=== PATIENT | male | born 1940 | race Asian ===

== ENCOUNTER 2022-03-13 09:38 | Outpatient (CLI) | payer MEDICARE, OTHER ==
--- NOTE | 2022-03-13 17:17 | Ultrasound Report ---
PROCEDURE: Aorta Screening INDICATIONS: FORMER SMOKER TECHNIQUE: Real time scanning was performed of the aorta and iliac arteries, with image documentatio n. COMPARISON: CT abdomen, 09/11/2006 FINDINGS: Aorta: Proximal aortic diameter measures 2.2 x 2.2 cm. Mid-aorta measures 1.9 x 1.8 cm. Distal aor tic diameter is 1.7 x 1.7 cm. Iliac arteries: Right common iliac artery measures 1.3 cm. Left common iliac artery measures 1.4 cm . IMPRESSION: 1. No evidence for abdominal aortic aneurysm. Reviewed by: Aditya Jorge MD on 03/13/2022 5:15 PM PST Approved by: Aditya Jorge MD on 03/13/2022 5:15 PM PST Station ID: [id number]
== END 2022-03-13 09:39 | disposition home or self-care (01) ==
LOC: DI 09:38
PROVIDERS: ATTEND Student in an Organized Health Care Education/Training Program
DX: Z13.6 Encounter for screening for cardiovascular disorders (principal); Z87.891 Personal history of nicotine dependence

== ENCOUNTER 2023-01-04 14:53 | Outpatient (CLI) | payer MEDICARE, OTHER | END 2023-01-04 23:59 | disposition critical access hospital (66) | LOC: EMS 14:53 | DX: R53.1 Weakness (principal); R50.9 Fever, unspecified; R00.0 Tachycardia, unspecified; E11.65 Type 2 diabetes mellitus with hyperglycemia; R06.2 Wheezing; I10 Essential (primary) hypertension; R06.82 Tachypnea, not elsewhere classified | CPT/HCPCS: A0425; A0427 ==

== ENCOUNTER 2023-01-04 15:19 | Emergency (ER) | payer MEDICARE, OTHER ==
[2023-01-04] MEDS ORDERED: IPRATROPIUM 0.2 MG/ML NEB INH STA (15:28)
--- NOTE | 2023-01-04 15:28 | ED Physician Documentation ---
History of Present Illness - Stated complaint Stated Complaint: FEVER - Additonal information Additional information: 82-year-old male is brought to the emergency department for evaluation of fever, weakness and fatigue. Past medical history includes insulin-dependent diabetes, hypertension, hyperlipidemia, gout. Per EMS family found the patient on the ground next to the bed. Patient reports that he came out of bed because he was too hot. EMS reported a fever of 101.3 on scene. EKG showed sinus tachycardia 120. Blood pressure 165/85. He is mildly tachypneic with respiratory rate of 22. Blood glucose was 320. Patient states he has not taken his insulin for several days due to generalized fatigue. EMS reports multiple sick contacts over the last several days at home. Patient at baseline has some confusion and is typically oriented to place and person though not time. This is not new. Patient states that he has had a cough for several days. Denies chest pain or dyspnea. meds: allopurinol, atorvastatin, losartin, 81 asa, novolog 50u qd, lantus 44u qd Review of Systems Constitutional: reports: Fever Cardiac: denies: Chest pain / pressure, Palpitations Respiratory: reports: Cough. denies: Dyspnea GI: reports: Reviewed and negative : reports: Reviewed and negative Skin: reports: Reviewed and negative Musculoskeletal: reports: Reviewed and negative PD PAST MEDICAL HISTORY - Past Medical History Cardiovascular: Hypertension, High cholesterol Respiratory: COPD Endocrine/Autoimmune: Type 1 diabetes GI: None : None HEENT: None Psych: None Musculoskeletal: None Derm: None - Present Medications Home Medications: Ambulatory Orders Medication Instructions Recorded Confirmed Aspirin [Aspir 81] 81 mg PO DAILY 06/21/13 01/04/23 Atorvastatin Calcium [Lipitor] 20 mg PO DAILY 06/21/13 01/04/23 Insulin Glargine,Hum.rec.anlog 44 unit SUBQ QPM 07/13/13 01/04/23 [Lantus] Insulin Aspart [NovoLOG] 50 unit SUBQ TIDWM 01/04/23 01/04/23 Montelukast [Singulair] 10 mg PO DAILY 01/04/23 01/04/23 allopurinoL [Allopurinol] 300 mg PO DAILY 01/04/23 01/04/23 - Allergies Allergies/Adverse Reactions: Allergies Allergy/AdvReac Type Severity Reaction Status Date / Time No Known Drug Allergies Allergy Verified 01/04/23 15:32 PD ED PE NORMAL - General General: Alert and oriented X 3, No acute distress - HEENT HEENT: Atraumatic - Neck Neck: Supple, no meningeal sign, No JVD - Cardiac Cardiac: RRR, No murmur - Respiratory Respiratory: No: Clear bilaterally (Faint scattered expiratory wheeze. 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 Eye Opening: Spontaneous Motor: Obeys Commands Verbal: Oriented GCS Score: 15 Results - Vitals Vitals: Vital Signs - 24 hr 01/04/23 01/04/23 01/04/23 15:27 15:31 15:48 Temperature 37.4 C Heart Rate 124 H 124 H 128 H Respiratory 24 24 20 Rate Blood Pressure 167/95 H 167/95 H O2 Saturation 93 93 01/04/23 01/04/23 01/04/23 16:07 16:22 16:52 Temperature 39.3 C H Heart Rate 120 H 130 H 128 H Respiratory 20 20 22 Rate Blood Pressure 170/90 H 160/100 H 160/122 H O2 Saturation 94 97 95 01/04/23 01/04/23 01/04/23 17:37 17:52 18:40 Temperature 37.4 C 37.4 C 37.4 C Heart Rate 118 H 115 H 108 H Respiratory 25 H 22 22 Rate Blood Pressure 151/82 H 172/82 H 160/80 H O2 Saturation 93 92 94 Oxygen O2 Source Room air - EKG (time done) 1541 EKG releavant findings:: EKG personally interpreted by author of this note. Relevant findings are: Rate: Rate (enter#) (129) Rhythm: Sinus tachycardia [place]: Normal Intervals: Normal CT QRS: Normal Ischemia: Non specific changes Compare to prior EKG: Old EKG unavailable Computer interpretation: Agree with computer - Labs Labs: Laboratory Tests 01/04/23 01/04/23 01/04/23 15:26 15:34 15:34 WBC 6.3 RBC 5.07 Hgb 15.3 Hct 45.9 MCV 90.5 MCH 30.2 MCHC 33.3 RDW 13.2 Plt Count 145 MPV 10.8 Neut # (Auto) 4.8 Lymph # (Auto) 0.6 L [place] # (Auto) 0.9 Eos # (Auto) 0.0 Baso # (Auto) 0.1 Absolute Nucleated RBC 0.00 Nucleated RBC % 0.0 Sodium 136 Potassium 3.7 Chloride 99 L Carbon Dioxide 27 Anion Gap 10.0 BUN 15 Creatinine 1.3 Estimated GFR (MDRD) 53 L Glucose 304 H POC Whole Bld Glucose Lactic Acid Calcium 9.0 Total Bilirubin 1.0 AST 29 ALT 19 Alkaline Phosphatase 66 Total Protein 7.6 Albumin 4.3 Globulin 3.3 Albumin/Globulin Ratio 1.3 Urine Color Urine Clarity Urine pH Ur Specific [place] Urine Protein Urine Glucose (UA) Urine Ketones Urine Occult Blood Urine Nitrite Urine Bilirubin Urine Urobilinogen Ur Leukocyte Esterase Urine RBC Urine WBC Ur Squamous Epith Cells Urine Bacteria Urine Mucus Urine Yeast Urine Culture Comments Nasal Adenovirus (PCR) NOT DETECTED Nasal B. parapertussis DNA (PCR) NOT DETECTED Nasal Coronavir 229E PCR NOT DETECTED Nasal Coronavir HKU1 PCR NOT DETECTED Nasal Coronavir NL63 PCR NOT DETECTED Nasal Coronavir OC43 PCR NOT DETECTED Nasal Enterovir/Rhinovir PCR NOT DETECTED Nasal Influenza B PCR NOT DETECTED Nasal Influenza A PCR NOT DETECTED Nasal Parainfluen 1 PCR NOT DETECTED Nasal Parainfluen 2 PCR NOT DETECTED Nasal Parainfluen 3 PCR NOT DETECTED Nasal Parainfluen 4 PCR NOT DETECTED Nasal RSV (PCR) NOT DETECTED Nasal B.pertussis DNA PCR NOT DETECTED Nasal C.pneumoniae (PCR) NOT DETECTED Chris Human Metapneumo PCR NOT DETECTED Nasal M.pneumoniae (PCR) NOT DETECTED Nasal SARS-CoV-2 (PCR) DETECTED A 01/04/23 01/04/23 01/04/23 15:34 16:13 17:25 WBC RBC Hgb Hct MCV MCH MCHC RDW Plt Count MPV Neut # (Auto) Lymph # (Auto) [place] # (Auto) Eos # (Auto) Baso # (Auto) Absolute Nucleated RBC Nucleated RBC % Sodium Potassium Chloride Carbon Dioxide Anion Gap BUN Creatinine Estimated GFR (MDRD) Glucose POC Whole Bld Glucose 182 H Lactic Acid 3.5 H* Calcium Total Bilirubin AST ALT Alkaline Phosphatase Total Protein Albumin Globulin Albumin/Globulin Ratio Urine Color BROWN Urine Clarity SL. CLOUDY Urine pH 6.0 Ur Specific [place] 1.025 Urine Protein >=300 H Urine Glucose (UA) >=1000 H Urine Ketones TRACE Urine Occult Blood LARGE H Urine Nitrite NEGATIVE Urine Bilirubin NEGATIVE Urine Urobilinogen 0.2 (NORMAL) Ur Leukocyte Esterase NEGATIVE Urine RBC 11-25 H Urine WBC 0-3 Ur Squamous Epith Cells FEW Squamous Urine Bacteria Few Urine Mucus Few Strands Urine Yeast PRESENT Urine Culture Comments NOT INDICATED Nasal Adenovirus (PCR) Nasal B. parapertussis DNA (PCR) Nasal Coronavir 229E PCR Nasal Coronavir HKU1 PCR Nasal Coronavir NL63 PCR Nasal Coronavir OC43 PCR Nasal Enterovir/Rhinovir PCR Nasal Influenza B PCR Nasal Influenza A PCR Nasal Parainfluen 1 PCR Nasal Parainfluen 2 PCR Nasal Parainfluen 3 PCR Nasal Parainfluen 4 PCR Nasal RSV (PCR) Nasal B.pertussis DNA PCR Nasal C.pneumoniae (PCR) Chris Human Metapneumo PCR Nasal M.pneumoniae (PCR) Nasal SARS-CoV-2 (PCR) 01/04/23 18:39 WBC RBC Hgb Hct MCV MCH MCHC RDW Plt Count MPV Neut # (Auto) Lymph # (Auto) [place] # (Auto) Eos # (Auto) Baso # (Auto) Absolute Nucleated RBC Nucleated RBC % Sodium Potassium Chloride Carbon Dioxide Anion Gap BUN Creatinine Estimated GFR (MDRD) Glucose POC Whole Bld Glucose Lactic Acid 2.7 H Calcium Total Bilirubin AST ALT Alkaline Phosphatase Total Protein Albumin Globulin Albumin/Globulin Ratio Urine Color Urine Clarity Urine pH Ur Specific [place] Urine Protein Urine Glucose (UA) Urine Ketones Urine Occult Blood Urine Nitrite Urine Bilirubin Urine Urobilinogen Ur Leukocyte Esterase Urine RBC Urine WBC Ur Squamous Epith Cells Urine Bacteria Urine Mucus Urine Yeast Urine Culture Comments Nasal Adenovirus (PCR) Nasal B. parapertussis DNA (PCR) Nasal Coronavir 229E PCR Nasal Coronavir HKU1 PCR Nasal Coronavir NL63 PCR Nasal Coronavir OC43 PCR Nasal Enterovir/Rhinovir PCR Nasal Influenza B PCR Nasal Influenza A PCR Nasal Parainfluen 1 PCR Nasal Parainfluen 2 PCR Nasal Parainfluen 3 PCR Nasal Parainfluen 4 PCR Nasal RSV (PCR) Nasal B.pertussis DNA PCR Nasal C.pneumoniae (PCR) Chris Human Metapneumo PCR Nasal M.pneumoniae (PCR) Nasal SARS-CoV-2 (PCR) - Rads (name of study) cxr Relevant Findings:: Final report received (Low lung volumes without acute abnormality. Stable elevation of the right hemidiaphragm is seen.) PD Medical Decision Making - ED course Complexity details: reviewed results, re-evaluated patient, considered differential, d/w patient, d/w family ED course: 82-year-old male who has a past medical history most significant for hypertension and diabetes is brought to the emergency department for evaluation of several days increasing weakness, fatigue fever and cough. Multiple family members at home are sick with similar. Here in the emergency department we did obtain labs under a sepsis protocol. Patient presented with a temperature 39.3 elevated heart rate of 130 but normotensive. Cardiopulmonary exam revealed some faint wheeze but no crackles or rhonchi. A chest x-ray showed no findings of pneumonia. His oxygen levels were normal. We did obtain CBC, electrolytes lactic acid as well as a PCR panel. Other laboratory findings most significant findings was that of a mildly elevated lactic acid of 3.5. CO2 was normal and I am not suspicious for acidosis. Urinalysis had some faint hematuria but no markers of infection. Blood cultures are pending. Here in the emergency department the patient received 2 L of IV fluids and on repeat evaluation the lactic acid was downtrending to 2.7. The patient's heart rate also markedly improved following control of the fever and at the time of my last evaluation in the room was noted to be 102. Patient's labs today are not consistent with sepsis nor is the patient in septic shock. The cause of fever and tachycardia is most likely COVID-19 infection Clinically the patient does not require hospitalization for treatment of his COVID-19 infection. He is not hypoxic and the chest x-ray showed no acute findings. We will treat the COVID-19 infection with Paxlovid. First dose administered here in the ER. He is advised to abstain from his atorvastatin while on the Paxlovid. I discussed with his son at the bedside the pertinent laboratory findings as well as routine management of the infection at home. The usual emergent return precautions were discussed for worsening symptoms. Departure - Departure Disposition: 01 Home, Self Care Clinical Impression: COVID-19 virus infection, Elevated lactic acid level Condition: Stable Record reviewed to determine appropriate education?: Yes Comments: Latrell was seen today in the emergency department because for the last several days he has been weak having cough as well as having fever. Multiple family members at home are sick. Lab testing today confirms that he is COVID-19 positive. Because of his history of hypertension and diabetes he is at higher risk for complications due to COVID-19. As such I recommend that he begin taking the Paxlovid twice daily for the next 5 days. While taking this medication he should not take his atorvastatin. The rest of his labs today in the emergency department were essentially normal with the exception of a mildly elevated lactic acid. This was improving with some IV fluids. At home over the next several days is important that he stay well-hydrated. He can continue to take his other usual medications with the exception of the atorvastatin. Chest x-ray today did not show any findings of pneumonia and his oxygen levels were normal. And there was no indication for hospitalization. If at any point you find that he is having worsening symptoms, is having labored breathing, is e xcessively dehydrated lethargic or weak then he should return immediately to the ER for repeat evaluation. He should remain in isolation for about 1 week from the onset of symptoms.
[2023-01-04 15:42] LABS: BASOPHILS # (AUTO) 0.1 10^3/uL (0.0-0.1); BASOPHILS % (AUTO) 0.8 %; EOSINOPHILS % (AUTO) 0.5 %; HCT - HEMATOCRIT 45.9 % (42.0-52.0); HGB - HEMOGLOBIN 15.3 g/dL (14.0-18.0); LYMPHOCYTES # (AUTO) 0.6 10^3/uL (1.5-3.5); LYMPHOCYTES % (AUTO) 9.1 %; MEAN CORPUSCULAR HEMOGLOBIN 30.2 pg (27.0-31.0); MEAN CORPUSCULAR HGB CONC 33.3 g/dL (32.0-36.0); MEAN CORPUSCULAR VOLUME 90.5 fL (80.0-94.0); MEAN PLATELET VOLUME 10.8 fL (7.4-11.4); MONOCYTES # (AUTO) 0.9 10^3/uL (0.0-1.0); MONOCYTES % (AUTO) 13.4 %; NEUTROPHILS # (AUTO) 4.8 10^3/uL (1.5-6.6); PLT - PLATELET COUNT 145 10^3/uL (130-450); RED BLOOD COUNT 5.07 10^6/uL (4.70-6.10); RED CELL DISTRIBUTION WIDTH 13.2 % (12.0-15.0); WHITE BLOOD COUNT 6.3 x10^3/uL (4.8-10.8)
[2023-01-04] MEDS: LEVALBUTEROL 1.25 MG/3 ML NEB INH STA (15:47)
[2023-01-04 15:57] LABS: ALBUMIN 4.3 g/dL (3.2-5.5); ALBUMIN/GLOBULIN RATIO 1.3 (1.0-2.2); CREATININE 1.3 mg/dL (0.6-1.3); POTASSIUM 3.7 mmol/L (3.5-4.5); TOTAL PROTEIN 7.6 g/dL (6.4-8.9)
[2023-01-04 16:09] LABS: LACTIC ACID, VENOUS 3.5 mmol/L (0.5-2.2)
[2023-01-04] MEDS ORDERED: SODIUM CHLORIDE 0.9% 1,000 ML IV STA (16:10)
[2023-01-04 16:19] LABS: BILIRUBIN,URINE NEGATIVE (NEGATIVE); GLUCOSE, URINE (UA) >=1000 mg/dL (NEGATIVE); KETONES,URINE (UA) TRACE mg/dL (NEGATIVE); LEUKOCYTE ESTERASE, URINE NEGATIVE (NEGATIVE); NITRITE,URINE NEGATIVE (NEGATIVE); OCCULT BLOOD,URINE LARGE (NEGATIVE); PROTEIN,URINE >=300 mg/dL (NEGATIVE); UROBILINOGEN,URINE 0.2 (NORMAL) E.U./dL (NORMAL)
--- NOTE | 2023-01-04 16:20 | XRAY Report ---
PROCEDURE: Chest 1 View X-Ray INDICATIONS: Sepsis TECHNIQUE: One view of the chest was acquired. COMPARISON: 05/15/2014. Correlation is also made with chest CT, 06/02/2014 FINDINGS: Surgical changes and devices: None. Lungs and pleura: An incomplete inspiratory result is noted, with low lung volumes and crowding of t he vascular markings. No focal infiltrates are seen. No large pneumothorax or large pleural effusion can be seen. There is elevation of the right hemidiaphragm. Mediastinum: Mediastinal contours appear normal. Heart size is normal. Calcification is seen of th e aortic arch. Bones and chest wall: No suspicious bony lesions. Age-appropriate degenerative changes are seen. Overlying soft tissues appear unremarkable. IMPRESSION: Low lung volumes, without an acute abnormality seen. Stable elevation of the right hemidiaphragm can be seen. Reviewed by: Wilton Thayer MD on 01/04/2023 3:19 PM [facility] Approved by: Wilton Thayer MD on 01/04/2023 3:19 PM [facility] Station ID: [id number]
[2023-01-04] MEDS ORDERED: INSULIN REGULAR HUMAN 300 UNIT/3 ML VIAL IVP STA (16:24)
[2023-01-04 16:27] LABS: BACTERIA,URINE Few /HPF (None Seen); CLARITY,URINE SL. CLOUDY (CLEAR); MUCUS,URINE Few Strands; SQUAMOUS EPITHELIAL CELL,UR FEW Squamous (<= Few); WBC,URINE 0-3 /HPF (0-3); YEAST,URINE PRESENT
[2023-01-04] MEDS ORDERED: ACETAMINOPHEN 325 MG TABLET PO STA (16:29)
[2023-01-04] MEDS ORDERED: IBUPROFEN 600 MG TABLET PO STA (16:36)
[2023-01-04 16:45] LABS: B. PARAPERTUSSIS- RESP PCR PAN NOT DETECTED; B. PERTUSSIS- RESP PCR PANEL NOT DETECTED; C. PNEUMONIAE- RESP PCR PANEL NOT DETECTED; CORONAVIRUS 229E-RESP PCR NOT DETECTED; CORONAVIRUS HKU1-RESP PCR NOT DETECTED; CORONAVIRUS NL63-RESP PCR NOT DETECTED; CORONAVIRUS OC43-RESP PCR NOT DETECTED; HUMAN METAPNEUMOVIRUS NOT DETECTED; INFLUENZA A- RESP PCR PANEL NOT DETECTED; INFLUENZA B - RESP PCR PANEL NOT DETECTED; M. PNEUMONIAE- RESP PCR PANEL NOT DETECTED; PARAINFLUENZA VIRUS 1 NOT DETECTED; PARAINFLUENZA VIRUS 2 NOT DETECTED; PARAINFLUENZA VIRUS 3 NOT DETECTED; PARAINFLUENZA VIRUS 4 NOT DETECTED; RHINOVIRUS/ENTEROVIRUS NOT DETECTED; RSV- RESP PCR PANEL NOT DETECTED
[2023-01-04 16:47] LABS: SARS-CoV-2 -RESP PCR PANEL DETECTED
[2023-01-04] MEDS ORDERED: NIRMATRELVIR/RITONAVIR PREPACK PO STA (16:47)
[2023-01-04 18:57] LABS: LACTIC ACID, VENOUS 2.7 mmol/L (0.5-2.2)
[2023-01-04 19:34] VITALS: BP 126/82; O2SAT 95
== END 2023-01-04 19:30 | disposition home or self-care (01) ==
LOC: ED 15:19
DX: U07.1 COVID-19 (principal); R74.02 Elevation of levels of lactic acid dehydrogenase [LDH]; I10 Essential (primary) hypertension; E78.00 Pure hypercholesterolemia, unspecified; J44.9 Chronic obstructive pulmonary disease, unspecified; E10.9 Type 1 diabetes mellitus without complications; Z79.82 Long term (current) use of aspirin; Z79.899 Other long term (current) drug therapy
CPT/HCPCS: 36415; 71045; 80053; 81001; 83605; 85025; 87040; 87633; 93005; 94640; 94664; 99284; A9270; J1815; J3490; 87086

== ENCOUNTER 2023-03-11 09:49 | Outpatient (CLI) | payer MEDICARE, OTHER | END 2023-03-11 09:50 | disposition critical access hospital (66) | LOC: EMS 09:49 | DX: R53.1 Weakness (principal); R05.9 Cough, unspecified | CPT/HCPCS: A0425; A0427 ==

== ENCOUNTER 2023-03-11 10:09 | Inpatient (IN) | payer MEDICARE, OTHER ==
[2023-03-11] MEDS ORDERED: SODIUM CHLORIDE 0.9% 1,000 ML IV STA (10:28)
[2023-03-11 11:04] LABS: BASOPHILS % (AUTO) 0.5 %; EOSINOPHILS # (AUTO) 0.2 10^3/uL (0.0-0.7); EOSINOPHILS % (AUTO) 2.1 %; HCT - HEMATOCRIT 44.4 % (42.0-52.0); HGB - HEMOGLOBIN 14.5 g/dL (14.0-18.0); LYMPHOCYTES # (AUTO) 0.4 10^3/uL (1.5-3.5); LYMPHOCYTES % (AUTO) 5.2 %; MEAN CORPUSCULAR HEMOGLOBIN 30.1 pg (27.0-31.0); MEAN CORPUSCULAR HGB CONC 32.7 g/dL (32.0-36.0); MEAN CORPUSCULAR VOLUME 92.1 fL (80.0-94.0); MEAN PLATELET VOLUME 10.5 fL (7.4-11.4); MONOCYTES # (AUTO) 0.6 10^3/uL (0.0-1.0); MONOCYTES % (AUTO) 7.8 %; NEUTROPHILS # (AUTO) 6.5 10^3/uL (1.5-6.6); PLT - PLATELET COUNT 173 10^3/uL (130-450); RED BLOOD COUNT 4.82 10^6/uL (4.70-6.10); RED CELL DISTRIBUTION WIDTH 13.3 % (12.0-15.0); WHITE BLOOD COUNT 7.7 x10^3/uL (4.8-10.8)
[2023-03-11 11:18] LABS: ALBUMIN/GLOBULIN RATIO 1.3 (1.0-2.2); BILIRUBIN,TOTAL 1.1 mg/dL (0.2-1.0); CALCIUM 8.9 mg/dL (8.5-10.3); CREATININE 1.4 mg/dL (0.6-1.3); POTASSIUM 3.7 mmol/L (3.5-4.5); TOTAL PROTEIN 7.2 g/dL (6.4-8.9)
--- NOTE | 2023-03-11 11:50 | XRAY Report ---
PROCEDURE: Chest 1V INDICATIONS: cough/tachycardia TECHNIQUE: One view of the chest was acquired. COMPARISON: None. FINDINGS: Surgical changes and devices: None. Lungs and pleura: No pleural effusions or pneumothorax. Lungs are clear. There is elevation of th e right hemidiaphragm, as before. Mediastinum: Mediastinal contours appear normal. Heart size is normal. Bones and chest wall: No suspicious bony lesions. Overlying soft tissues appear unremarkable. IMPRESSION: No acute cardiopulmonary process. Unchanged elevation of the right hemidiaphragm. Reviewed by: Marlys Dennis MD on 03/11/2023 11:49 AM [facility] Approved by: Marlys Dennis MD on 03/11/2023 11:49 AM [facility] Station ID: [id number]
[2023-03-11 12:02] LABS: CORONAVIRUS 229E-RESP PCR NOT DETECTED; CORONAVIRUS HKU1-RESP PCR NOT DETECTED; CORONAVIRUS NL63-RESP PCR NOT DETECTED; CORONAVIRUS OC43-RESP PCR NOT DETECTED; HUMAN METAPNEUMOVIRUS NOT DETECTED; INFLUENZA A H1 2009- RESP PCR DETECTED; RHINOVIRUS/ENTEROVIRUS NOT DETECTED; SARS-CoV-2 -RESP PCR PANEL NOT DETECTED
[2023-03-11 12:03] LABS: B. PARAPERTUSSIS- RESP PCR PAN NOT DETECTED; B. PERTUSSIS- RESP PCR PANEL NOT DETECTED; C. PNEUMONIAE- RESP PCR PANEL NOT DETECTED; INFLUENZA B - RESP PCR PANEL NOT DETECTED; M. PNEUMONIAE- RESP PCR PANEL NOT DETECTED; PARAINFLUENZA VIRUS 1 NOT DETECTED; PARAINFLUENZA VIRUS 2 NOT DETECTED; PARAINFLUENZA VIRUS 3 NOT DETECTED; PARAINFLUENZA VIRUS 4 NOT DETECTED; RSV- RESP PCR PANEL NOT DETECTED
--- NOTE | 2023-03-11 12:15 | ED Physician Documentation ---
History of Present Illness - Stated complaint Stated Complaint: WEAKNESS/GLF - Chief complaint Chief Complaint: General - History obtained from History obtained from: Patient, EMS - Additonal information Additional information: Patient is an 83-year-old male With a history of insulin-dependent diabetes, hypertension, hyperlipidemia, presenting for evaluation of generalized weakness as well as feeling cough, congestion for the past several days. Patient states that he has been ill for approximately 3 days with cough, congestion, runny nose. No reported fevers. At this morning he was sitting up in the bathroom when he felt weak and lowered himself down to the ground. He denies hitting his head. There is no LOC. He denies pain anywhere. Patient is unsure of known sick contacts. From prior notes it appears that based patient has some baseline confusion and typically oriented to person and place although not time. Review of Systems Constitutional: denies: Fever Nose: reports: Congestion Throat: reports: Sore throat Cardiac: denies: Chest pain / pressure Respiratory: reports: Cough. denies: Dyspnea GI: denies: Abdominal Pain, Vomiting : denies: Dysuria Neurologic: denies: Syncope PD PAST MEDICAL HISTORY - Past Medical History Cardiovascular: Hypertension, High cholesterol Respiratory: COPD Endocrine/Autoimmune: Type 1 diabetes GI: None : None HEENT: None Psych: None Musculoskeletal: None Derm: None - Present Medications Home Medications: Ambulatory Orders Medication Instructions Recorded Confirmed Aspirin [Aspir 81] 81 mg PO DAILY 06/21/13 03/11/23 Atorvastatin Calcium [Lipitor] 20 mg PO DAILY 06/21/13 03/11/23 Insulin Glargine,Hum.rec.anlog 100 unit SUBQ QPM 07/13/13 03/11/23 [Lantus] Insulin Aspart [NovoLOG] 44 unit SUBQ TIDWM 01/04/23 03/11/23 Montelukast [Singulair] 10 mg PO DAILY 01/04/23 03/11/23 allopurinoL [Allopurinol] 300 mg PO DAILY 01/04/23 03/11/23 Fluticasone [Flonase] 1 inh INH DAILY 03/11/23 03/11/23 Losartan [Cozaar] 1 tab PO DAILY 03/11/23 03/11/23 - Allergies Allergies/Adverse Reactions: Allergies Allergy/AdvReac Type Severity Reaction Status Date / Time No Known Drug Allergies Allergy Verified 01/04/23 15:32 - Social History Does the pt smoke?: No Smoking Status: Never smoker Does the pt drink ETOH?: No Does the pt have substance abuse?: No PD ED PE NORMAL - General General: No acute distress, Well developed/nourished. No: Alert and oriented X 3 (Alert and oriented to person and place but confused on year) - HEENT HEENT: Atraumatic - Neck Neck: Supple, no meningeal sign. No: No bony TTP - Cardiac Cardiac: Strong equal pulses, Other (Tachycardic, regular rhythm) - Respiratory Respiratory: No respiratory distress, Clear bilaterally - Abdomen Abdomen: Normal bowel sounds, Soft, Non tender, Non distended - Derm Derm: Warm and dry - Extremities Extremities: No calf tenderness / cord - Neuro Neuro: No motor deficit, Normal speech. No: Alert and oriented X 3 (Alert and oriented to person and place) Results - Vitals Vitals: Vital Signs - 24 hr 03/11/23 03/11/23 03/11/23 10:13 11:35 11:36 Temperature 98.1 C H Heart Rate 129 H Respiratory 26 H Rate Blood Pressure 161/92 H O2 Saturation 92 88 L 94 If not protocol 2 : Oxygen Flow, liters/minute 03/11/23 13:00 Temperature Heart Rate 124 H Respiratory 19 Rate Blood Pressure 154/130 H O2 Saturation 95 If not protocol 2 : Oxygen Flow, liters/minute Oxygen O2 Source Nasal cannula Oxygen Flow Rate 2 - EKG (time done) 1058 EKG releavant findings:: EKG personally interpreted by author of this note. Relevant findings are: Rate 119, sinus tachycardia, no STEMI - Labs Labs: Laboratory Tests 03/11/23 03/11/23 03/11/23 10:35 10:48 10:48 WBC 7.7 RBC 4.82 Hgb 14.5 Hct 44.4 MCV 92.1 MCH 30.1 MCHC 32.7 RDW 13.3 Plt Count 173 MPV 10.5 Neut # (Auto) 6.5 Lymph # (Auto) 0.4 L [place] # (Auto) 0.6 Eos # (Auto) 0.2 Baso # (Auto) 0.0 Absolute Nucleated RBC 0.00 Nucleated RBC % 0.0 Sodium 140 Potassium 3.7 Chloride 103 Carbon Dioxide 29 Anion Gap 8.0 BUN 17 Creatinine 1.4 H Estimated GFR (MDRD) 48 L Glucose 193 H Lactic Acid Calcium 8.9 Total Bilirubin 1.1 H AST 24 ALT 18 Alkaline Phosphatase 65 Troponin I High Sens Total Protein 7.2 Albumin 4.0 Globulin 3.2 Albumin/Globulin Ratio 1.3 Lipase 21 Nasal Adenovirus (PCR) NOT DETECTED Nasal B. parapertussis DNA (PCR) NOT DETECTED Nasal Coronavir 229E PCR NOT DETECTED Nasal Coronavir HKU1 PCR NOT DETECTED Nasal Coronavir NL63 PCR NOT DETECTED Nasal Coronavir OC43 PCR NOT DETECTED Nasal Enterovir/Rhinovir PCR NOT DETECTED Nasal Influ A H1 2009 PCR DETECTED A Nasal Influenza B PCR NOT DETECTED Nasal Parainfluen 1 PCR NOT DETECTED Nasal Parainfluen 2 PCR NOT DETECTED Nasal Parainfluen 3 PCR NOT DETECTED Nasal Parainfluen 4 PCR NOT DETECTED Nasal RSV (PCR) NOT DETECTED Nasal B.pertussis DNA PCR NOT DETECTED Nasal C.pneumoniae (PCR) NOT DETECTED Chris Human Metapneumo PCR NOT DETECTED Nasal M.pneumoniae (PCR) NOT DETECTED Nasal SARS-CoV-2 (PCR) NOT DETECTED 03/11/23 03/11/23 10:48 10:48 WBC RBC Hgb Hct MCV MCH MCHC RDW Plt Count MPV Neut # (Auto) Lymph # (Auto) [place] # (Auto) Eos # (Auto) Baso # (Auto) Absolute Nucleated RBC Nucleated RBC % Sodium Potassium Chloride Carbon Dioxide Anion Gap BUN Creatinine Estimated GFR (MDRD) Glucose Lactic Acid 2.1 Calcium Total Bilirubin AST ALT Alkaline Phosphatase Troponin I High Sens 13.9 Total Protein Albumin Globulin Albumin/Globulin Ratio Lipase Nasal Adenovirus (PCR) Nasal B. parapertussis DNA (PCR) Nasal Coronavir 229E PCR Nasal Coronavir HKU1 PCR Nasal Coronavir NL63 PCR Nasal Coronavir OC43 PCR Nasal Enterovir/Rhinovir PCR Nasal Influ A H1 2009 PCR Nasal Influenza B PCR Nasal Parainfluen 1 PCR Nasal Parainfluen 2 PCR Nasal Parainfluen 3 PCR Nasal Parainfluen 4 PCR Nasal RSV (PCR) Nasal B.pertussis DNA PCR Nasal C.pneumoniae (PCR) Chris Human Metapneumo PCR Nasal M.pneumoniae (PCR) Nasal SARS-CoV-2 (PCR) PD Medical Decision Making - ED course Complexity details: reviewed results, re-evaluated patient, d/w patient, d/w family ED course: Patient is an 83-year-old male presenting for evaluation of generalized weakness in setting of cough and congestion for the past several days. Patient denies hitting his head or having syncope. His neuroexam appears to be at his baseline. No focal deficits. Patient is noted to be hypoxic with room air sats around 88% which improved on nasal cannula. CBC, chemistry, blood cultures and lactic were obtained. Respiratory swab and chest x-ray were also reviewed. Patient is positive for influenza A. Chest x-ray which I reviewed is negative for pneumonia.Creatinine is 1.4 which is similar to previous. Negative high- sensitivity troponin. No signs of ischemia on EKG. Patient is noted to be tachycardic. He did receive IV fluids. As he is requiring oxygen we will admit for further management. 1327 - D/W Admitting hospitalist, Dr. Rosa who will admit the patient for further management. Departure - Departure Disposition: 66 [facility] DC/Xfer Clinical Impression: Influenza A, Hypoxia, Sinus tachycardia Condition: Fair Discharge Date/Time: 03/11/23 15:19
[2023-03-11] MEDS ORDERED: OSELTAMIVIR 75 MG CAPSULE PO STA (13:26)
[2023-03-11] MEDS ORDERED: oxyCODONE 5 MG TABLET PO PRN (13:34)
[2023-03-11] MEDS ORDERED: ONDANSETRON ODT 4 MG TABLET TL PRN (13:34)
[2023-03-11] MEDS ORDERED: ONDANSETRON 4 MG/2 ML VIAL IVP PRN (13:34)
[2023-03-11] MEDS ORDERED: ACETAMINOPHEN 325 MG TABLET PO PRN (13:34)
[2023-03-11] MEDS ORDERED: SODIUM CHLORIDE FLUSH 0.9% 10 ML SYRINGE IVP PRN (13:34)
[2023-03-11] MEDS: SODIUM CHLORIDE 0.9% 1,000 ML IV SCH (13:48)
--- NOTE | 2023-03-11 15:35 | HISTORY & PHYSICAL EXAMINATION ---
Chief Complaint - Chief Complaint Chief Complaint: Patient was found after falling in the bathroom History of Present Illness - Admitted From Admitted From:: Emergency Room - History Obtained From Records Reviewed: from patient's opthalmologist History obtained from: Patient's son Exam Limitations: Patient has dementia - History of Present Illness HPI Comment/Other: Mr. Coronado is an 83 year old male with dementia, COPD, and Type 1 diabetes who presents to the ER via ambulance after falling in the bathroom. He lives with his eenhqvj-fn-cij and nephew, who are his primary care takers. Patient is here with his son, who is acting as his historian. According to the patient's family, Mr. Coronado began coughing, feeling congested, weakm and having trouble breathing a few days ago. This morning, he went to the restroom alone when his [id number]-[id number]-fjd heard a loud thud and found Mr. Coronado on the floor against the door. Patient denies hitting his head and denies any pain. Of note, multiple family members with whom Mr. Coronado lives with are currently sick with flu-like symptoms. Patient has not complained of any fevers, headaches, vision changes, nausea, vomiting, or chills. His appetite is intact and has regular bowel m ovements. While in the ER, patient was started on 2 L of O2 via nasal cannula since his O2 sat was 88% upon arrival. O2 sats have increased, hovering between 92-94%. Initial labs showed a normal WBC and CMP with positive Influenza type A. His son noticed that Mr. Coronado began having rigors, which also occurred during his hospitalization in 12/2022 for COVID-19. History - Past Medical History Cardiovascular: reports: Hypertension, High cholesterol Respiratory: reports: Asthma, COPD Neuro: reports: Dementia Endocrine/Autoimmune: reports: Type 2 diabetes (insulin dependent ) GI: reports: None : reports: None HEENT: reports: None Psych: reports: None Musculoskeletal: reports: None Derm: reports: None MRSA Hx?: No Other Past Medical History: Prostate cancer with resection in 2006 - Past Surgical History HEENT: reports: Cataracts (both removed 2013) Other past surgical history: prostate resection due to prostate cancer - Family & Social History Family History Comment/Other: Mom of unknown cancer in old age. Dad of old age, did have DM. Pat is 1 of 10 kids: all alive with HTN, DM. 2 children are healthy w/o med problems Living arrangement: At home Living Situation: With family Social History Notes: His wacnnjm-uj-cpf moved in with him and serves as his primary kitchen steward/stewardess. His 4 years ago. - Substance History Use: Uses substance without health or social issues: NONE, Tobacco (for ~2 years in his 20's ) Abuse: Recurrent use of substance despite neg consequences: NONE Dependence: Experiences withdrawal or developed tolerances: NONE - POLST Patient has POLST: Yes POLST Status: DNR Meds/Allgy - Home Medications Home Medications: Ambulatory Orders Medication Instructions Recorded Confirmed Aspirin [Aspir 81] 81 mg PO DAILY 06/21/13 03/11/23 Atorvastatin Calcium [Lipitor] 20 mg PO DAILY 06/21/13 03/11/23 Insulin Glargine,Hum.rec.anlog 100 unit SUBQ QPM 07/13/13 03/11/23 [Lantus] Insulin Aspart [NovoLOG] 44 unit SUBQ TIDWM 01/04/23 03/11/23 Montelukast [Singulair] 10 mg PO DAILY 01/04/23 03/11/23 allopurinoL [Allopurinol] 300 mg PO DAILY 01/04/23 03/11/23 Fluticasone [Flonase] 1 inh INH DAILY 03/11/23 03/11/23 Losartan [Cozaar] 1 tab PO DAILY 03/11/23 03/11/23 - Allergies Allergies/Adverse Reactions: Allergies Allergy/AdvReac Type Severity Reaction Status Date / Time No Known Drug Allergies Allergy Verified 01/04/23 15:32 Review of Systems - Constitutional Constitutional: reports: Fatigue, Weakness, Other (rigors that began in the ER (per patient's son)) - Eyes Eyes: reports: Vision loss - Ears, Nose & Throat Ears, Nose & Throat: reports: Nasal obstruction, Nasal congestion, Postnasal drainage. denies: Hearing aids - Cardiovascular Cariovascular: denies: Irregular heart rate, Chest pain - Respiratory Respiratory: reports: Cough, Sputum production, Wheezing - Gastrointestinal Gastrointestinal: denies: Abdominal pain, Abdominal distention, Diarrhea, Nausea, Vomiting - Genitourinary Genitourinary: reports: Incontinence. denies: Dysuria, Frequency, Urgency - Musculoskeletal Musculoskeletal: reports: Gout. denies: Muscle pain, Back pain - Integumentary Integumentary: denies: Rash, Pruritis, Lesions - Neurological Neurological: reports: General weakness, Memory problems, Pre-existing deficit - Psychiatric Psychiatric: denies: Depression, Anxiety, Suicidal - Endocrine Endocrine: denies: Polyuria, Polydypsia, Polyphagia - Hematologic/Lymphatic Hematologic/Lymphatic: denies: Anemia, Bruising, Petechiae - Other Findings Other Findings: Tremors at rest began while patient was waiting in the ER. Patient's son notes that the patient had sudden onset tremors while hospitalized for COVID-19 recently. Prior Level of Functionality: Patient lives with his frukbbz-aj-svz, who acts as his primary caregiver. Patient is able to ambulate on his own. He feeds himself. but because of his dementia he needs mutiple prompts to eat or to bathe or to dress himself. No walker or cane. No 02. Exam - Vital Signs Reviewed Vital Signs: Yes Vital Signs: Vital Signs x48h Temp Pulse Pulse Resp BP BP Pulse Ox 03/11/23 15:25 38.2 C H 132 H 20 178/107 H 94 03/11/23 14:00 129 H 23 198/103 H 100 03/11/23 13:00 124 H 19 154/130 H 95 03/11/23 11:36 94 03/11/23 11:35 88 L 03/11/23 10:13 98.1 C H 129 H 26 H 161/92 H 92 O2 Flow Rate 03/11/23 15:25 2 03/11/23 14:00 2 03/11/23 13:00 2 03/11/23 11:36 2 03/11/23 11:35 03/11/23 10:13 - Physical Exam General Appearance: positive: Alert, Moderate distress (due to tachypnea and non stop cough.), Other (short statured obese Citizen Of [place] male, well dressed. good hygeine.) Eyes Bilateral: positive: Normal inspection, PERRL, EOMI ENT: positive: No signs of dehydration, Other (nasal voice, congested sinuses, rhinorrhea and coryza) Neck: positive: Nml inspection, No JVD, Trachea midline. negative: Stiff neck Respiratory: positive: Chest non-tender, Wheezes, Rhonchi, Other (no tripodding or use of accessory muscles but everytime he spoke, cough spasm) Cardiovascular: positive: Regular rate & rhythm (knew name, birthdate, year and where he was!), Tachycardia Peripheral Pulses: positive: 2+ Abdomen: positive: Non-tender, Nml bowel sounds, No distention Skin: positive: Color nml, No rash, Warm, Dry Extremities: positive: Non-tender, Full ROM, Nml appearance Neurologic/Psychiatric: positive: Oriented x3, CN's nml (2-12), Motor nml (multiple tries to get out of bed, forgets within minutes of being asked to stay in bed. taking off NC.), Weakness (generalized) Sepsis Event Note (H) - Evaluation Current Stage of Sepsis: Ruled out Conclusion/Plan - Problem List (1) Acute respiratory failure with hypoxia Conclusion/Plan: Acute respiratory failure with hypoxia due to Influenza - Patient will be admitted and meets the inpatient criteria - Start supportive therapy including supplemental oxygen, duoneb, and Singulair - Breathing may be exacerbated by history of asthma and COPD (2) Influenza A Conclusion/Plan: Patient tested positive for Influenza A - Patient will be admitted due to acute respiratory distress - Sepsis criteria was considered but patient's fever improved and he is no longer febrile - Will start on Tamiflu and IV fluids (3) Type 2 diabetes mellitus treated with insulin Conclusion/Plan: - Will check blood sugar before meals and before bed. - Will use sliding scale, Novolog 10, and Lantus 50 - Will get A1C with labs tomorrow morning (4) Dementia with behavioral disturbance Conclusion/Plan: Patient will be assigned to 1 on 1 surveillance (5) COPD with asthma Conclusion/Plan: - Patient will start duonebs, supplemental oxygen, and Singulair - Will continue to monitor O2 sats - Chest XR was unremarkable, no sign of pneumonia or cardiopulmonary processes (6) Hypertension Conclusion/Plan: - Will start home antihpertensive medications Qualifiers: Hypertension type: primary hypertension Qualified Code(s): I10 - Essential (primary) hypertension - Lab Results Lab results reviewed: Yes Fish Bones: 03/11/23 10:48 03/11/23 10:48 - Diagnostic Imaging Results Diagnostic Imaging Results: positive: Final report reviewed Core Measures - Anticipated LOS I expect patient to be DC'd or transferred within 96 hours.: Yes - DVT/VTE - Prophylaxis VTE/DVT Prophylaxis med ordered at admit?: Yes - Stroke - Rehab Assessment Rehab services assessment to be ordered?: No
[2023-03-11] MEDS: SODIUM CHLORIDE FLUSH 0.9% 10 ML SYRINGE IVP SCH (16:04)
[2023-03-11] MEDS ORDERED: IPRATROPIUM/ALBUTEROL 3 ML NEB INH PRN (16:28)
[2023-03-11 16:36] LABS: BILIRUBIN,URINE NEGATIVE (NEGATIVE); GLUCOSE, URINE (UA) 100 mg/dL (NEGATIVE); KETONES,URINE (UA) 15 mg/dL (NEGATIVE); LEUKOCYTE ESTERASE, URINE NEGATIVE (NEGATIVE); NITRITE,URINE NEGATIVE (NEGATIVE); OCCULT BLOOD,URINE LARGE (NEGATIVE); PROTEIN,URINE 100 mg/dL (NEGATIVE); UROBILINOGEN,URINE 0.2 (NORMAL) E.U./dL (NORMAL)
[2023-03-11 16:37] LABS: CLARITY,URINE HAZY (CLEAR)
[2023-03-11 16:46] LABS: BACTERIA,URINE None Seen /HPF (None Seen); RBC,URINE TNTC /HPF (0-5); SQUAMOUS EPITHELIAL CELL,UR NONE SEEN (<= Few); WBC,URINE 0-3 /HPF (0-3)
[2023-03-11] MEDS: INSULIN LISPRO 300 UNIT/3 ML PEN SUBQ SCH ×3 (17:26→21:02)
[2023-03-11] MEDS ORDERED: INSULIN GLARGINE-YFGN 300 UNIT/3 ML PEN SUBQ SCH (21:00)
[2023-03-11] MEDS: MONTELUKAST 10 MG TABLET PO SCH (21:21)
[2023-03-11] MEDS: OSELTAMIVIR 30 MG CAPSULE PO SCH (21:21)
[2023-03-12] MEDS: SODIUM CHLORIDE FLUSH 0.9% 10 ML SYRINGE IVP SCH ×3 (00:10→17:31)
[2023-03-12] MEDS: SODIUM CHLORIDE 0.9% 1,000 ML IV SCH (00:55)
[2023-03-12 07:10] LABS: CALCIUM 8.1 mg/dL (8.5-10.3); CREATININE 1.1 mg/dL (0.6-1.3); POTASSIUM 3.6 mmol/L (3.5-4.5)
[2023-03-12 07:12] LABS: BASOPHILS % (AUTO) 0.5 %; EOSINOPHILS % (AUTO) 0.1 %; HCT - HEMATOCRIT 39.3 % (42.0-52.0); HGB - HEMOGLOBIN 13.1 g/dL (14.0-18.0); LYMPHOCYTES # (AUTO) 0.4 10^3/uL (1.5-3.5); LYMPHOCYTES % (AUTO) 5.6 %; MEAN CORPUSCULAR HEMOGLOBIN 30.7 pg (27.0-31.0); MEAN CORPUSCULAR HGB CONC 33.3 g/dL (32.0-36.0); MEAN PLATELET VOLUME 10.7 fL (7.4-11.4); MONOCYTES % (AUTO) 12.9 %; NEUTROPHILS # (AUTO) 6.2 10^3/uL (1.5-6.6); NEUTROPHILS % (AUTO) 80.6 %; PLT - PLATELET COUNT 139 10^3/uL (130-450); RED BLOOD COUNT 4.27 10^6/uL (4.70-6.10); RED CELL DISTRIBUTION WIDTH 13.3 % (12.0-15.0); WHITE BLOOD COUNT 7.7 x10^3/uL (4.8-10.8)
[2023-03-12] MEDS: INSULIN LISPRO 300 UNIT/3 ML PEN SUBQ SCH ×7 (07:54→20:38)
[2023-03-12] MEDS: LOSARTAN 50 MG TABLET PO SCH (08:15)
[2023-03-12] MEDS: ASPIRIN EC 81 MG TABLET PO SCH (08:15)
[2023-03-12] MEDS: allopurinoL 100 MG TABLET PO SCH (08:15)
[2023-03-12] MEDS: ATORVASTATIN 10 MG TABLET PO SCH (08:15)
[2023-03-12] MEDS: ENOXAPARIN 40 MG/0.4 ML SYRINGE SUBQ SCH (08:16)
[2023-03-12] MEDS: OSELTAMIVIR 30 MG CAPSULE PO SCH ×2 (08:21→20:50)
[2023-03-12 10:23] LABS: ESTIMATED AVERAGE GLUCOSE 217 mg/dL (70-100); HEMOGLOBIN A1c% 9.2 % (4.27-6.07)
--- NOTE | 2023-03-12 10:59 | PROVIDER PROGRESS NOTE ---
Subjective - Prog Note Date Prog Note Date: 03/12/23 Prog Note Time: 10:57 - Subjective Pt reports feeling: Improved Subjective: Mr. Coronado is an 83 year old male with dementia, COPD, and Type 1 diabetes who was admitted yesterday after falling in the bathroom. He lives with his hzsvraa-xu-kku and nephew, who are his primary care takers. Mr. Coronado began coughing, feeling congested, weak and having trouble breathing a few days ago. Multiple family members with whom Mr. Coronado lives with are currently sick with flu-like symptoms. While in the ER, Mr. Coronado was started on 2L of O2 via nasal cannula since his O2 sat was 88% on arrival. Initial labs showed a normal WBC and CMP with positive Influenza type A. His son noticed that Mr. Coronado began having rigors, which also occurred during his hospitalization in 12/2022 for COVID-19. Today, Mr. Coronado reports feeling much better. His cough has improved and his rigors have resolved. He continues to have noticeable wheezing and has pursed lip breathing. Denies any fevers, headaches, vision changes, nausea, vomiting, or chills. His appetite is intact and has regular bowel movements. Objective - Vital Signs/Intake & Output Vital Signs: Vital Signs x48h Temp Pulse Resp BP Pulse Ox O2 Flow Rate 03/12/23 07:36 37.4 C 124 H 26 H 147/89 H 93 2 03/12/23 07:35 2 Intake & Output: Intake & Output 03/09/23 03/10/23 03/11/23 03/12/23 23:59 23:59 23:59 23:59 Intake Total 1670 1657 Output Total 300 200 Balance 1370 1457 - Objective General Appearance: positive: Alert, Mild distress Eyes Bilateral: positive: Normal inspection, PERRL, EOMI Neck: positive: No JVD, Trachea midline Respiratory: positive: Wheezes, Other (pursed lip breathing, tachypnea) Cardiovascular: positive: Regular rate & rhythm, No gallop, Tachycardia Abdomen: positive: Non-tender, Nml bowel sounds, No distention Back: positive: Nml inspection Skin: positive: No rash, Warm, Dry Extremities: positive: Non-tender, Full ROM, Nml appearance, No pedal edema Neurologic/Psychiatric: positive: Oriented x3, Weakness - Lab Results Fish Bones: 03/12/23 06:44 03/12/23 06:44 Other Labs: Lab Results x24hrs 03/12/23 03/12/23 03/12/23 Range/Units 06:44 06:44 06:44 WBC 7.7 (4.8-10.8) x10^3/uL RBC 4.27 L (4.70-6.10) 10^6/uL Hgb 13.1 L (14.0-18.0) g/dL Hct 39.3 L (42.0-52.0) % MCV 92.0 (80.0-94.0) fL MCH 30.7 (27.0-31.0) pg MCHC 33.3 (32.0-36.0) g/dL RDW 13.3 (12.0-15.0) % Plt Count 139 (130-450) 10^3/uL MPV 10.7 (7.4-11.4) fL Neut # (Auto) 6.2 (1.5-6.6) 10^3/uL Lymph # (Auto) 0.4 L (1.5-3.5) 10^3/uL [place] # (Auto) 1.0 (0.0-1.0) 10^3/uL Eos # (Auto) 0.0 (0.0-0.7) 10^3/uL Baso # (Auto) 0.0 (0.0-0.1) 10^3/uL Absolute Nucleated RBC 0.00 x10^3/uL Nucleated RBC % 0.0 /100WBC Sodium 136 (135-145) mmol/L Potassium 3.6 (3.5-4.5) mmol/L Chloride 103 (101-111) mmol/L Carbon Dioxide 26 (21-32) mmol/L Anion Gap 7.0 (6-13) BUN 14 (6-20) mg/dL Creatinine 1.1 (0.6-1.3) mg/dL Estimated GFR (MDRD) 64 L (>89) Glucose 155 H (74-104) mg/dL Estimat Average Glucose 217 H (70-100) mg/dL Hemoglobin A1c % 9.2 H (4.27-6.07) % Lactic Acid (0.5-2.2) mmol/L Calcium 8.1 L (8.5-10.3) mg/dL Total Bilirubin (0.2-1.0) mg/dL AST (10-42) IU/L ALT (10-60) IU/L Alkaline Phosphatase (42-121) IU/L Troponin I High Sens (2.3-19.7) ng/L Total Protein (6.4-8.9) g/dL Albumin (3.2-5.5) g/dL Globulin (2.1-4.2) g/dL Albumin/Globulin Ratio (1.0-2.2) Lipase (11-82) U/L Urine Color Urine Clarity (CLEAR) Urine pH (5.0-7.5) PH Ur Specific [place] (1.002-1.030) Urine Protein (NEGATIVE) mg/dL Urine Glucose (UA) (NEGATIVE) mg/dL Urine Ketones (NEGATIVE) mg/dL Urine Occult Blood (NEGATIVE) Urine Nitrite (NEGATIVE) Urine Bilirubin (NEGATIVE) Urine Urobilinogen (NORMAL) E.U./dL Ur Leukocyte Esterase (NEGATIVE) Urine RBC (0-5) /HPF Urine WBC (0-3) /HPF Ur Squamous Epith Cells (<= Few) Urine Bacteria (None Seen) /HPF Ur Microscopic Review Urine Culture Comments Nasal Adenovirus (PCR) Nasal B. parapertussis DNA (PCR) Nasal Coronavir 229E PCR Nasal Coronavir HKU1 PCR Nasal Coronavir NL63 PCR Nasal Coronavir OC43 PCR Nasal Enterovir/Rhinovir PCR Nasal Influ A H1 2009 PCR Nasal Influenza B PCR Nasal Parainfluen 1 PCR Nasal Parainfluen 2 PCR Nasal Parainfluen 3 PCR Nasal Parainfluen 4 PCR Nasal RSV (PCR) Nasal B.pertussis DNA PCR Nasal C.pneumoniae (PCR) Chris Human Metapneumo PCR Nasal M.pneumoniae (PCR) Nasal SARS-CoV-2 (PCR) 03/11/23 03/11/23 03/11/23 Range/Units 16:20 10:48 10:48 WBC (4.8-10.8) x10^3/uL RBC (4.70-6.10) 10^6/uL Hgb (14.0-18.0) g/dL Hct (42.0-52.0) % MCV (80.0-94.0) fL MCH (27.0-31.0) pg MCHC (32.0-36.0) g/dL RDW (12.0-15.0) % Plt Count (130-450) 10^3/uL MPV (7.4-11.4) fL Neut # (Auto) (1.5-6.6) 10^3/uL Lymph # (Auto) (1.5-3.5) 10^3/uL [place] # (Auto) (0.0-1.0) 10^3/uL Eos # (Auto) (0.0-0.7) 10^3/uL Baso # (Auto) (0.0-0.1) 10^3/uL Absolute Nucleated RBC x10^3/uL Nucleated RBC % /100WBC Sodium (135-145) mmol/L Potassium (3.5-4.5) mmol/L Chloride (101-111) mmol/L Carbon Dioxide (21-32) mmol/L Anion Gap (6-13) BUN (6-20) mg/dL Creatinine (0.6-1.3) mg/dL Estimated GFR (MDRD) (>89) Glucose (74-104) mg/dL Estimat Average Glucose (70-100) mg/dL Hemoglobin A1c % (4.27-6.07) % Lactic Acid 2.1 (0.5-2.2) mmol/L Calcium (8.5-10.3) mg/dL Total Bilirubin (0.2-1.0) mg/dL AST (10-42) IU/L ALT (10-60) IU/L Alkaline Phosphatase (42-121) IU/L Troponin I High Sens 13.9 (2.3-19.7) ng/L Total Protein (6.4-8.9) g/dL Albumin (3.2-5.5) g/dL Globulin (2.1-4.2) g/dL Albumin/Globulin Ratio (1.0-2.2) Lipase (11-82) U/L Urine Color YELLOW Urine Clarity HAZY (CLEAR) Urine pH 6.0 (5.0-7.5) PH Ur Specific [place] 1.020 (1.002-1.030) Urine Protein 100 H (NEGATIVE) mg/dL Urine Glucose (UA) 100 H (NEGATIVE) mg/dL Urine Ketones 15 H (NEGATIVE) mg/dL Urine Occult Blood LARGE H (NEGATIVE) Urine Nitrite NEGATIVE (NEGATIVE) Urine Bilirubin NEGATIVE (NEGATIVE) Urine Urobilinogen 0.2 (NORMAL) (NORMAL) E.U./dL Ur Leukocyte Esterase NEGATIVE (NEGATIVE) Urine RBC TNTC H (0-5) /HPF Urine WBC 0-3 (0-3) /HPF Ur Squamous Epith Cells NONE SEEN (<= Few) Urine Bacteria None Seen (None Seen) /HPF Ur Microscopic Review INDICATED Urine Culture Comments NOT INDICATED Nasal Adenovirus (PCR) Nasal B. parapertussis DNA (PCR) Nasal Coronavir 229E PCR Nasal Coronavir HKU1 PCR Nasal Coronavir NL63 PCR Nasal Coronavir OC43 PCR Nasal Enterovir/Rhinovir PCR Nasal Influ A H1 2009 PCR Nasal Influenza B PCR Nasal Parainfluen 1 PCR Nasal Parainfluen 2 PCR Nasal Parainfluen 3 PCR Nasal Parainfluen 4 PCR Nasal RSV (PCR) Nasal B.pertussis DNA PCR Nasal C.pneumoniae (PCR) Chris Human Metapneumo PCR Nasal M.pneumoniae (PCR) Nasal SARS-CoV-2 (PCR) 03/11/23 03/11/23 03/11/23 Range/Units 10:48 10:48 10:35 WBC 7.7 (4.8-10.8) x10^3/uL RBC 4.82 (4.70-6.10) 10^6/uL Hgb 14.5 (14.0-18.0) g/dL Hct 44.4 (42.0-52.0) % MCV 92.1 (80.0-94.0) fL MCH 30.1 (27.0-31.0) pg MCHC 32.7 (32.0-36.0) g/dL RDW 13.3 (12.0-15.0) % Plt Count 173 (130-450) 10^3/uL MPV 10.5 (7.4-11.4) fL Neut # (Auto) 6.5 (1.5-6.6) 10^3/uL Lymph # (Auto) 0.4 L (1.5-3.5) 10^3/uL [place] # (Auto) 0.6 (0.0-1.0) 10^3/uL Eos # (Auto) 0.2 (0.0-0.7) 10^3/uL Baso # (Auto) 0.0 (0.0-0.1) 10^3/uL Absolute Nucleated RBC 0.00 x10^3/uL Nucleated RBC % 0.0 /100WBC Sodium 140 (135-145) mmol/L Potassium 3.7 (3.5-4.5) mmol/L Chloride 103 (101-111) mmol/L Carbon Dioxide 29 (21-32) mmol/L Anion Gap 8.0 (6-13) BUN 17 (6-20) mg/dL Creatinine 1.4 H (0.6-1.3) mg/dL Estimated GFR (MDRD) 48 L (>89) Glucose 193 H (74-104) mg/dL Estimat Average Glucose (70-100) mg/dL Hemoglobin A1c % (4.27-6.07) % Lactic Acid (0.5-2.2) mmol/L Calcium 8.9 (8.5-10.3) mg/dL Total Bilirubin 1.1 H (0.2-1.0) mg/dL AST 24 (10-42) IU/L ALT 18 (10-60) IU/L Alkaline Phosphatase 65 (42-121) IU/L Troponin I High Sens (2.3-19.7) ng/L Total Protein 7.2 (6.4-8.9) g/dL Albumin 4.0 (3.2-5.5) g/dL Globulin 3.2 (2.1-4.2) g/dL Albumin/Globulin Ratio 1.3 (1.0-2.2) Lipase 21 (11-82) U/L Urine Color Urine Clarity (CLEAR) Urine pH (5.0-7.5) PH Ur Specific [place] (1.002-1.030) Urine Protein (NEGATIVE) mg/dL Urine Glucose (UA) (NEGATIVE) mg/dL Urine Ketones (NEGATIVE) mg/dL Urine Occult Blood (NEGATIVE) Urine Nitrite (NEGATIVE) Urine Bilirubin (NEGATIVE) Urine Urobilinogen (NORMAL) E.U./dL Ur Leukocyte Esterase (NEGATIVE) Urine RBC (0-5) /HPF Urine WBC (0-3) /HPF Ur Squamous Epith Cells (<= Few) Urine Bacteria (None Seen) /HPF Ur Microscopic Review Urine Culture Comments Nasal Adenovirus (PCR) NOT DETECTED Nasal B. parapertussis DNA (PCR) NOT DETECTED Nasal Coronavir 229E PCR NOT DETECTED Nasal Coronavir HKU1 PCR NOT DETECTED Nasal Coronavir NL63 PCR NOT DETECTED Nasal Coronavir OC43 PCR NOT DETECTED Nasal Enterovir/Rhinovir PCR NOT DETECTED Nasal Influ A H1 2009 PCR DETECTED A Nasal Influenza B PCR NOT DETECTED Nasal Parainfluen 1 PCR NOT DETECTED Nasal Parainfluen 2 PCR NOT DETECTED Nasal Parainfluen 3 PCR NOT DETECTED Nasal Parainfluen 4 PCR NOT DETECTED Nasal RSV (PCR) NOT DETECTED Nasal B.pertussis DNA PCR NOT DETECTED Nasal C.pneumoniae (PCR) NOT DETECTED Chris Human Metapneumo PCR NOT DETECTED Nasal M.pneumoniae (PCR) NOT DETECTED Nasal SARS-CoV-2 (PCR) NOT DETECTED - Other Results/Comments Other Results/Comments: EKG was done and results showed normal EKG Sepsis Event Note (H) - Evaluation Current Stage of Sepsis: Ruled out - Sepsis Criteria Sepsis Criteria: Recorded Heart Rate greater than 90 bpm, Recorded Respiratory Rate greater than 20 Assessment/Plan - Problem List (1) Acute respiratory failure with hypoxia Impression: Acute respiratory failure with hypoxia due to Influenza. Patient's O2 sats continue to range between 90-93% on 2L NC. - Supportive therapy including supplemental oxygen, duoneb, and Singulair - Breathing may be exacerbated by history of asthma and COPD (2) Hypoxia Impression: Patient will continue on supplemental O2 at 2L via nasal cannula - Can increase if needed (3) Influenza A Impression: Patient tested positive for Influenza A - Patient will be admitted due to acute respiratory distress - Sepsis criteria was considered but patient's fever improved and he is no longer febrile - Continue on Tamiflu and IV fluids - Today is day 2/5 on Tamiflu (4) COPD with asthma Impression: - Continue on duonebs, supplemental oxygen, and Singulair - Will continue to monitor O2 sats - Chest XR was unremarkable, no sign of pneumonia or cardiopulmonary processes - Considered steroids but will hold for now due to uncontrolled diabetes. Will consider if patient's symptoms worsen (5) Dementia with behavioral disturbance Impression: Patient was assigned to 1 on 1 surveillance upon admission to the floor but did not need require surveillance through the night. Patient remained calm throughout the rest of the night. - Standing orders for 1 on 1 surveillance if needed for behavior changes due to dementia (6) Sinus tachycardia Impression: When getting up to walk to the restroom, patient's HR was in the 140's and respirations were in the mid 20's. It took 3 minutes for his heart rate to return to the 120's and for his respirations to be under 20. Out of concern for Afib, an EKG was completed today. Impression: sinus tachycardia with ventricular bigeminy - At this time, there is no concern for acute cardiac processes (7) Type 2 diabetes mellitus treated with insulin Impression: Patient's blood sugar has been under 200 since admission. His insulin last night was held due to BS ~ 103. BS before breakfast this morning was in the 160's. Given that his home dose of insulin is 100 units, we are not sure that this is the appropiate dose. We will request that his family receive diabetic education training to ensure proper injection of insulin. - Will check blood sugar before meals and before bed. - Will use sliding scale, Novolog 10, and Lantus 50 - Will consult with nutrition to optimize diet - Will request family get diabetic education training as his caregivers are providing his insulin (8) Hypertension Impression: - Will start home antihpertensive medications Qualifiers: Hypertension type: primary hypertension Qualified Code(s): I10 - Essential (primary) hypertension
[2023-03-12] MEDS: MONTELUKAST 10 MG TABLET PO SCH (20:51)
[2023-03-12] MEDS: INSULIN GLARGINE-YFGN 300 UNIT/3 ML PEN SUBQ SCH (21:15)
[2023-03-13] MEDS: SODIUM CHLORIDE FLUSH 0.9% 10 ML SYRINGE IVP SCH ×3 (00:26→17:03)
[2023-03-13 06:23] LABS: BASOPHILS % (AUTO) 0.7 %; EOSINOPHILS # (AUTO) 0.2 10^3/uL (0.0-0.7); EOSINOPHILS % (AUTO) 4.7 %; HCT - HEMATOCRIT 42.4 % (42.0-52.0); HGB - HEMOGLOBIN 13.9 g/dL (14.0-18.0); LYMPHOCYTES # (AUTO) 0.9 10^3/uL (1.5-3.5); LYMPHOCYTES % (AUTO) 20.8 %; MEAN CORPUSCULAR HEMOGLOBIN 30.5 pg (27.0-31.0); MEAN CORPUSCULAR HGB CONC 32.8 g/dL (32.0-36.0); MEAN CORPUSCULAR VOLUME 93.2 fL (80.0-94.0); MEAN PLATELET VOLUME 10.8 fL (7.4-11.4); MONOCYTES # (AUTO) 0.8 10^3/uL (0.0-1.0); MONOCYTES % (AUTO) 18.9 %; NEUTROPHILS # (AUTO) 2.3 10^3/uL (1.5-6.6); NEUTROPHILS % (AUTO) 54.7 %; PLT - PLATELET COUNT 135 10^3/uL (130-450); RED BLOOD COUNT 4.55 10^6/uL (4.70-6.10); RED CELL DISTRIBUTION WIDTH 13.2 % (12.0-15.0); WHITE BLOOD COUNT 4.3 x10^3/uL (4.8-10.8)
[2023-03-13 06:34] LABS: CALCIUM 8.5 mg/dL (8.5-10.3); CREATININE 1.1 mg/dL (0.6-1.3); POTASSIUM 3.5 mmol/L (3.5-4.5)
[2023-03-13] MEDS: allopurinoL 100 MG TABLET PO SCH (08:32)
[2023-03-13] MEDS: OSELTAMIVIR 30 MG CAPSULE PO SCH ×2 (08:32→21:05)
[2023-03-13] MEDS: ENOXAPARIN 40 MG/0.4 ML SYRINGE SUBQ SCH (08:32)
[2023-03-13] MEDS: ATORVASTATIN 10 MG TABLET PO SCH (08:32)
[2023-03-13] MEDS: ASPIRIN EC 81 MG TABLET PO SCH (08:32)
[2023-03-13] MEDS: LOSARTAN 50 MG TABLET PO SCH (08:32)
[2023-03-13] MEDS: INSULIN LISPRO 300 UNIT/3 ML PEN SUBQ SCH ×4 (08:33→21:05)
--- NOTE | 2023-03-13 08:35 | PROVIDER PROGRESS NOTE ---
Assessment/Plan - Problem List (1) Acute respiratory failure with hypoxia Assessment/Plan: Due to Influenza on top of having of asthma and COPD with an exacerbation Plan: Cont suppl O2, target sat 88% Treat the underlying causes (2) Influenza A Impression: Patient tested positive for Influenza A. Today is day 3/5 on Tamiflu Plan: Continue on Tamiflu Will stop IV fluids if he is drinking well, since no longer febrile Isolation as per CDC (3) COPD with asthma Impression: Chest XR was unremarkable, no sign of pneumonia or cardiopulmonary processes Plan: We considered steroids but will hold for now due to uncontrolled diabetes. Will consider if patient's symptoms worsen (4) Type 2 diabetes mellitus treated with insulin Impression: His reconciled med list showed he was getting 100 U of long acting Insulin at home. Here we have decreased Long acting Ins to 10 U in a.m. and 20 U in p.m. and he had an a.m. glu of 93 this morning. I suspect he was not getting his Insulin administered correctly, and today his RN confirmed he was using a syringe and cannot read the markings on a syringe Plan: We will request that his family receive diabetic education training to ensure proper injection of insulin. Will DC using Insulin pen Stop mealtime 10 U reg Insulin and only use sliding scale Cont Semglee in a.m. and p.m. (5) Hypertension Impression: Plan: Cont his home antihpertensive medications (6) Dementia with behavioral disturbance Impression: Patient remains calm. He is slow to answer but is interactive and oriented Plan: Cont any home meds for dementia Supportive care - Current Meds Current Meds: Current Medications Generic Name Dose Route Start Last Admin Trade Name Trent PRN Reason Stop Dose Admin Acetaminophen 650 mg 03/11/23 13:34 03/11/23 17:27 Acetaminophen 325 Mg Tablet PO 650 mg Q4HR PRN Administration Pain 1 to 4, or Fever Allopurinol 300 mg 03/12/23 09:00 03/12/23 08:15 Allopurinol 100 Mg Tablet PO 300 mg DAILY BENJAMÍN Administration Aspirin 81 mg 03/12/23 09:00 03/12/23 08:15 Aspirin Ec 81 Mg Tablet PO 81 mg DAILY BENJAMÍN Administration Atorvastatin Calcium 20 mg 03/12/23 09:00 03/12/23 08:15 Atorvastatin 10 Mg Tablet PO 20 mg DAILY BENJAMÍN Administration Enoxaparin Sodium 40 mg 03/12/23 09:00 03/12/23 08:16 Enoxaparin 40 Mg/0.4 Ml Syringe SUBQ 40 mg DAILY BENJAMÍN Administration Insulin Glargine-yfgn 20 unit 03/12/23 21:00 03/12/23 21:15 Insulin Glargine-Yfgn 300 Unit/3 Ml Pen SUBQ Not Given QPM [facility] Insulin Human Lispro 3 - 11 unit 03/11/23 17:00 03/12/23 20:38 Insulin Lispro 300 Unit/3 Ml Pen SUBQ Not Given 0800,1200,1700,2100 [facility] Protocol Losartan Potassium 50 mg 03/12/23 09:00 03/12/23 08:15 Losartan 50 Mg Tablet PO 50 mg DAILY BENJAMÍN Administration Montelukast Sodium 10 mg 03/11/23 21:00 03/12/23 20:51 Montelukast 10 Mg Tablet PO 10 mg QPM BENJAMÍN Administration Oseltamivir Phosphate 30 mg 03/11/23 21:00 03/12/23 20:50 Oseltamivir 30 Mg Capsule PO 03/16/23 09:01 30 mg BID BENJAMÍN Administration Sodium Chloride 10 ml 03/11/23 17:00 03/13/23 00:26 Sodium Chloride Flush 0.9% 10 Ml Syringe IVP Not Given 0100,0900,1700 [facility] - Lab Result Fish Bone Diagrams: 03/13/23 05:56 03/13/23 05:56 - Additional Planning My Orders: My Active Orders 03/13/23 08:00 Isolation [Infection Precautions] [RC] QSHIFT Subjective - Subjective Patient Reports: Feeling Better (But still is hoarse and is coughing dry cough and is wheezy) Objective Vital Signs: Vital Signs - 24 hr 03/12/23 03/12/23 03/13/23 15:38 22:00 00:09 Temperature 37.0 C 36.7 C Heart Rate [ 109 H 95 Brachial] Respiratory 20 20 Rate Blood Pressure 152/86 H 134/77 H [Right Brachial artery] O2 Saturation 98 96 If not protocol 2 1 2 : Oxygen Flow, liters/minute 03/13/23 03/13/23 00:10 07:47 Temperature 37.2 C Heart Rate [ 112 H Brachial] Respiratory 20 Rate Blood Pressure 142/91 H [Right Brachial artery] O2 Saturation 93 If not protocol 1 1 : Oxygen Flow, liters/minute Oxygen O2 Source Nasal cannula Oxygen Flow Rate 2 I&O (Last 24 Hrs): Intake and Output Totals x24h 03/11/23 03/12/23 03/13/23 23:59 23:59 23:59 Intake Total 1670 3915 0 Output Total 300 400 Balance 1370 3515 0 General: Alert, Oriented x3 HEENT: Mucous membr. moist/pink, Other (Hoarse voice) Neck: Supple, No JVD Neuro: Alert, Non Focal Cardiovascular: Regular rate, No murmurs Respiratory: Wheezes Abdomen: Normal bowel sounds, Soft, Other (Obese) Extremities: No clubbing, No edema, No tenderness/swelling - Results Results: Laboratory Results WBC 4.3 x10^3/uL (4.8-10.8) L 03/13/23 05:56 RBC 4.55 10^6/uL (4.70-6.10) L 03/13/23 05:56 Hgb 13.9 g/dL (14.0-18.0) L 03/13/23 05:56 Hct 42.4 % (42.0-52.0) 03/13/23 05:56 MCV 93.2 fL (80.0-94.0) 03/13/23 05:56 MCH 30.5 pg (27.0-31.0) 03/13/23 05:56 MCHC 32.8 g/dL (32.0-36.0) 03/13/23 05:56 RDW 13.2 % (12.0-15.0) 03/13/23 05:56 Plt Count 135 10^3/uL (130-450) 03/13/23 05:56 MPV 10.8 fL (7.4-11.4) 03/13/23 05:56 Neut # (Auto) 2.3 10^3/uL (1.5-6.6) 03/13/23 05:56 Lymph # (Auto) 0.9 10^3/uL (1.5-3.5) L 03/13/23 05:56 [place] # (Auto) 0.8 10^3/uL (0.0-1.0) 03/13/23 05:56 Eos # (Auto) 0.2 10^3/uL (0.0-0.7) 03/13/23 05:56 Baso # (Auto) 0.0 10^3/uL (0.0-0.1) 03/13/23 05:56 Absolute Nucleated RBC 0.00 x10^3/uL 03/13/23 05:56 Nucleated RBC % 0.0 /100WBC 03/13/23 05:56 Sodium 140 mmol/L (135-145) 03/13/23 05:56 Potassium 3.5 mmol/L (3.5-4.5) 03/13/23 05:56 Chloride 102 mmol/L (101-111) 03/13/23 05:56 Carbon Dioxide 28 mmol/L (21-32) 03/13/23 05:56 Anion Gap 10.0 (6-13) 03/13/23 05:56 BUN 13 mg/dL (6-20) 03/13/23 05:56 Creatinine 1.1 mg/dL (0.6-1.3) 03/13/23 05:56 Estimated GFR (MDRD) 64 (>89) L 03/13/23 05:56 Glucose 81 mg/dL (74-104) 03/13/23 05:56 Estimat Average Glucose 217 mg/dL (70-100) H 03/12/23 06:44 Hemoglobin A1c % 9.2 % (4.27-6.07) H 03/12/23 06:44 Lactic Acid 2.1 mmol/L (0.5-2.2) 03/11/23 10:48 Calcium 8.5 mg/dL (8.5-10.3) 03/13/23 05:56 Total Bilirubin 1.1 mg/dL (0.2-1.0) H 03/11/23 10:48 AST 24 IU/L (10-42) 03/11/23 10:48 ALT 18 IU/L (10-60) 03/11/23 10:48 Alkaline Phosphatase 65 IU/L (42-121) 03/11/23 10:48 Troponin I High Sens 13.9 ng/L (2.3-19.7) 03/11/23 10:48 Total Protein 7.2 g/dL (6.4-8.9) 03/11/23 10:48 Albumin 4.0 g/dL (3.2-5.5) 03/11/23 10:48 Globulin 3.2 g/dL (2.1-4.2) 03/11/23 10:48 Albumin/Globulin Ratio 1.3 (1.0-2.2) 03/11/23 10:48 Lipase 21 U/L (11-82) 03/11/23 10:48 Urine Color YELLOW 03/11/23 16:20 Urine Clarity HAZY (CLEAR) 03/11/23 16:20 Urine pH 6.0 PH (5.0-7.5) 03/11/23 16:20 Ur Specific [place]ster 1.020 (1.002-1.030) 03/11/23 16:20 Urine Protein 100 mg/dL (NEGATIVE) H 03/11/23 16:20 Urine Glucose (UA) 100 mg/dL (NEGATIVE) H 03/11/23 16:20 Urine Ketones 15 mg/dL (NEGATIVE) H 03/11/23 16:20 Urine Occult Blood LARGE (NEGATIVE) H 03/11/23 16:20 Urine Nitrite NEGATIVE (NEGATIVE) 03/11/23 16:20 Urine Bilirubin NEGATIVE (NEGATIVE) 03/11/23 16:20 Urine Urobilinogen 0.2 (NORMAL) E.U./dL (NORMAL) 03/11/23 16:20 Ur Leukocyte Esterase NEGATIVE (NEGATIVE) 03/11/23 16:20 Urine RBC TNTC /HPF (0-5) H 03/11/23 16:20 Urine WBC 0-3 /HPF (0-3) 03/11/23 16:20 Ur Squamous Epith Cells NONE SEEN (<= Few) 03/11/23 16:20 Urine Bacteria None Seen /HPF (None Seen) 03/11/23 16:20 Ur Microscopic Review INDICATED 03/11/23 16:20 Urine Culture Comments NOT INDICATED 03/11/23 16:20 Nasal Adenovirus (PCR) NOT DETECTED 03/11/23 10:35 Nasal B. parapertussis DNA (PCR) NOT DETECTED 03/11/23 10:35 Nasal Coronavir 229E PCR NOT DETECTED 03/11/23 10:35 Nasal Coronavir HKU1 PCR NOT DETECTED 03/11/23 10:35 Nasal Coronavir NL63 PCR NOT DETECTED 03/11/23 10:35 Nasal Coronavir OC43 PCR NOT DETECTED 03/11/23 10:35 Nasal Enterovir/Rhinovir PCR NOT DETECTED 03/11/23 10:35 Nasal Influ A H1 2009 PCR DETECTED A 03/11/23 10:35 Nasal Influenza B PCR NOT DETECTED 03/11/23 10:35 Nasal Parainfluen 1 PCR NOT DETECTED 03/11/23 10:35 Nasal Parainfluen 2 PCR NOT DETECTED 03/11/23 10:35 Nasal Parainfluen 3 PCR NOT DETECTED 03/11/23 10:35 Nasal Parainfluen 4 PCR NOT DETECTED 03/11/23 10:35 Nasal RSV (PCR) NOT DETECTED 03/11/23 10:35 Nasal B.pertussis DNA PCR NOT DETECTED 03/11/23 10:35 Nasal C.pneumoniae (PCR) NOT DETECTED 03/11/23 10:35 Chris Human Metapneumo PCR NOT DETECTED 03/11/23 10:35 Nasal M.pneumoniae (PCR) NOT DETECTED 03/11/23 10:35 Nasal SARS-CoV-2 (PCR) NOT DETECTED 03/11/23 10:35 - Procedures Procedures: Procedures CATARAC PHACOEMULS/ASPIR (07/13/13) INSERT LENS AT CATAR EXT (07/13/13) Sepsis Event Note (H) - Evaluation Current Stage of Sepsis: Ruled out - Sepsis Criteria Sepsis Criteria: Recorded Heart Rate greater than 90 bpm, Recorded Respiratory Rate greater than 20
[2023-03-13] MEDS ORDERED: INSULIN LISPRO 300 UNIT/3 ML PEN SUBQ SCH (12:00)
--- NOTE | 2023-03-13 14:25 | PHARMACY PROGRESS NOTE ---
- Best Possible Medication History Admit Date and Time: 03/11/23 8463 Processed by: Pharmacy Medication History completed: Yes Secondary Source(s): Other family member, Physician records (Dr Velasquez) As the person ultimately responsible for medication therapy, providers are able to order a medication from an existing home medication list in [facility] via the "Reconcile Routine" prior to Confirmation of that medication by technical support director. Such practice is discouraged except when the physician, in their clinical judgment, deems that a medical need exists for a medication without regard to previous use.
[2023-03-13] MEDS: MONTELUKAST 10 MG TABLET PO SCH (21:05)
[2023-03-13] MEDS: INSULIN GLARGINE-YFGN 300 UNIT/3 ML PEN SUBQ SCH (21:06)
[2023-03-14] MEDS: SODIUM CHLORIDE FLUSH 0.9% 10 ML SYRINGE IVP SCH ×2 (01:28→09:20)
[2023-03-14 05:42] LABS: BASOPHILS % (AUTO) 0.5 %; EOSINOPHILS # (AUTO) 0.3 10^3/uL (0.0-0.7); EOSINOPHILS % (AUTO) 8.5 %; HCT - HEMATOCRIT 40.8 % (42.0-52.0); HGB - HEMOGLOBIN 13.5 g/dL (14.0-18.0); LYMPHOCYTES # (AUTO) 1.1 10^3/uL (1.5-3.5); LYMPHOCYTES % (AUTO) 29.3 %; MEAN CORPUSCULAR HEMOGLOBIN 30.1 pg (27.0-31.0); MEAN CORPUSCULAR HGB CONC 33.1 g/dL (32.0-36.0); MEAN CORPUSCULAR VOLUME 91.1 fL (80.0-94.0); MEAN PLATELET VOLUME 10.8 fL (7.4-11.4); MONOCYTES # (AUTO) 0.7 10^3/uL (0.0-1.0); MONOCYTES % (AUTO) 18.9 %; NEUTROPHILS # (AUTO) 1.6 10^3/uL (1.5-6.6); NEUTROPHILS % (AUTO) 42.8 %; PLT - PLATELET COUNT 142 10^3/uL (130-450); RED BLOOD COUNT 4.48 10^6/uL (4.70-6.10); RED CELL DISTRIBUTION WIDTH 12.8 % (12.0-15.0); WHITE BLOOD COUNT 3.8 x10^3/uL (4.8-10.8)
[2023-03-14 06:20] LABS: CALCIUM 8.6 mg/dL (8.5-10.3); CREATININE 0.9 mg/dL (0.6-1.3); POTASSIUM 3.1 mmol/L (3.5-4.5)
[2023-03-14] MEDS: INSULIN LISPRO 300 UNIT/3 ML PEN SUBQ SCH ×2 (07:51→11:31)
[2023-03-14] MEDS: ENOXAPARIN 40 MG/0.4 ML SYRINGE SUBQ SCH (07:52)
[2023-03-14] MEDS: allopurinoL 100 MG TABLET PO SCH (07:52)
[2023-03-14] MEDS: LOSARTAN 50 MG TABLET PO SCH (07:52)
[2023-03-14] MEDS: ATORVASTATIN 10 MG TABLET PO SCH (07:52)
[2023-03-14] MEDS: ASPIRIN EC 81 MG TABLET PO SCH (07:52)
[2023-03-14] MEDS: OSELTAMIVIR 30 MG CAPSULE PO SCH (07:52)
[2023-03-14 08:06] VITALS: BP 162/89; O2SAT 92
[2023-03-14] MEDS ORDERED: POTASSIUM CHLORIDE 10 MEQ CAPSULE PO ONE (10:35)
--- NOTE | 2023-03-14 12:11 | Discharge Plan ---
Discharge Plan Problem Reviewed?: Yes Disposition: Home, Self Care Condition: Fair Prescriptions: Pen Needle, Diabetic [Caretouch Pen Needle] 1 each MC QPM #30 ea Insulin Glargine [Lantus Solostar] 20 unit SUBQ QPM #1 ea Oseltamivir [Tamiflu] 30 mg PO BID #5 cap Diet: Diabetic Activity Restrictions: Activity as Tolerated Shower Restrictions: No Driving Restrictions: Yes Weight Bearing: Full Weight Health Concerns: The patient required hospitalization due to shortness of breath and low oxygen levels. We found the cause to be an Influenza infection. The patient needed Tamiflu and bronchodilators to open his airways. He received supplemental oxygen and is now tapered off of that. The patient is being discharged home today with a prescription sent to his pharmacy for receiving several more days of Tamiflu medicine. While the patient was here, we found that his insulin dosing using a syringe was very inaccurate. He will now be dosed his Insulin using an Insulin-filled pen. That prescription was electronically sent to the [facility] pharmacy in [place]. The [id number]-ofb was educated on giving this Insulin. The patient needs follow-up with his primary care doctor to determine if a second type of shorter acting insulin is also needed to be given by the family members. Please put aside the older Insulin and do not use them. All the other medicines that the patient took, before being admitted to the hospital, can be resumed. The patient should see his Primary Care Provider in the next 5 to 10 days for hospital follow-up visit to check his lungs and manage the Insulin dosing. Plan of Treatment: As above. Care Goals: Improvement in symptoms and stabilization are the goals. Assessment: The [id number] understands and is agreeable with the plan. No Smoking: If you smoke, Please STOP! Call for help. Follow-up with: Octavio Velasquez MD [Provider Admit Priv/Credential] -
--- NOTE | 2023-03-14 12:16 | DISCHARGE SUMMARY ---
Discharge Summary Admit Date: 03/11/23 Discharge Date: 03/14/23 Discharging Provider: Dr Kamille Rosa Primary Care Provider: Dr Octavio Velasquez Code Status: Do Not Attempt Resuscitation Condition at Discharge: Fair Discharge Disposition: 01 Home, Self Care - HPI History of Present Illness: Mr. Coronado is an 83 year old Italian male with dementia, COPD, and Type 1 diabetes who presents to the ER via ambulance after falling in the bathroom. He lives with his cygdceg-we-enq and nephew, who are his primary care takers. Patient is currently here with his son, who is acting as his historian. According to the patient's family, Mr. Coronado began coughing, feeling congested, weak and having trouble breathing a few days ago. This morning, he went to the restroom alone when his gjeduhr-xp-pil heard a loud thud and found Mr. Coronado on the floor against the door. Patient denies loss of consciousness, or hitting his head and denies any pain. Of note, multiple family members with whom Mr. Coronado lives with are currently sick with flu-like symptoms. Patient has not complained of any fevers, headaches, vision changes, nausea, vomiting, or chills. His appetite is intact and has regular bowel movements. While in the ER, patient was started on 2 L of O2 via nasal cannula since his O2 sat was 88% upon arrival. O2 sats have increased, hovering between 92-94% on suppl O2. Initial labs showed a normal WBC and CMP with positive Influenza type A. His son noticed that Mr. Coronado began having rigors, which also occurred during his hospitalization in 12/2022 for COVID-19. His CODE BLUE status in DNR. - HOSPITAL COURSE Hospital Course: (1) Acute respiratory failure with hypoxia His hypoxia was due to Influenza on top of having of asthma and COPD with an exacerbation. He was on suppl O2, which was slwoly weaned down to room air. (2) Influenza A Patient tested positive for Influenza A. He was put on Tamiflu and droplet isolation was ordered. At discharge, 2 more days of Tamiflu were prescribed. (3) COPD with asthma Chest XR was unremarkable, no sign of pneumonia or cardiopulmonary processes. He did receive bronchodilators but no steroids due to uncontrolled diabetes with high glu. (4) Type 2 diabetes mellitus treated with insulin His A1c came back at 9.2, indicating poor glu control. His reconciled med list showed he was getting 2 types of Insulin at home, which was being administered via a syringe. Here we decreased the doses and gave Long acting Ins 10 U in a.m. and 20 U in p.m. but that produced morning glu of 93. Then we learned that his Djczdaw-cg-emk administers him the Insulin when he gets home from work and the patient receives a dinnertime dose and bedtime dose only. Since the syringe markings are difficult, at discharge, the Insulin was newly prescribed to be 20 U of Semglee in a pen, given in the p.m. and the [id number] was tested to see if he could use an Insulin pen, which he could. His Insulin may need dosing adjustments with the family getting education, or possibly a visiting nurse needs to come and do daytime Insulin injection(s). He needs further management ordered by the PCP. (5) Hypertension We continued his home antihpertensive medications (6) Dementia with behavioral disturbance Patient remains calm and cooperative during the day. But he is slow to answer. He seems to [place]azy at night, which was when he pulled out iv and needed more support. - ALLERGIES Allergies/Adverse Reactions: Allergies Allergy/AdvReac Type Severity Reaction Status Date / Time No Known Drug Allergies Allergy Verified 01/04/23 15:32 - MEDICATIONS Home Medications: Ambulatory Orders Medication Instructions Recorded Confirmed Aspirin [Aspir 81] 81 mg PO DAILY 06/21/13 03/11/23 Atorvastatin Calcium [Lipitor] 20 mg PO DAILY 06/21/13 03/11/23 Montelukast [Singulair] 10 mg PO DAILY 01/04/23 03/11/23 allopurinoL [Allopurinol] 300 mg PO DAILY 01/04/23 03/11/23 Fluticasone [Flonase] 1 inh MICHELLE DAILY PRN 03/11/23 03/13/23 Losartan [Cozaar] 50 mg PO DAILY 03/11/23 03/13/23 Insulin Glargine [Lantus Solostar] 20 unit SUBQ QPM #1 ea 03/14/23 Oseltamivir [Tamiflu] 30 mg PO BID #5 cap 03/14/23 Pen Needle, Diabetic [Caretouch 1 each QPM #30 ea 03/14/23 Pen Needle] - PHYSICAL EXAM AT DISCHARGE General Appearance: positive: No acute distress, Alert Eyes Bilateral: positive: Normal inspection, EOMI ENT: positive: Other (Hoarseness of voice) Neck: positive: Nml inspection, No JVD Respiratory: positive: Breath sounds nml (scattered whhze) Abdomen: positive: Non-tender, Nml bowel sounds, No distention Skin: positive: Warm, Dry Extremities: positive: Non-tender, No pedal edema Neurologic/Psychiatric: positive: CN's nml (2-12), Motor nml, Disoriented to place, Disoriented to time - LABS Result Diagrams: 03/14/23 05:09 03/14/23 05:09 - DIAGNOSTIC IMAGING Diagnostic Imaging Results: Final report reviewed - FOLLOW UP Follow Up: See PCP in 5-10 days for a hospital F/U visit. - TIME SPENT Time Spent in Discharge (Minutes): 45
== END 2023-03-14 13:41 | disposition home or self-care (01) | DRG 189 ==
LOC: EDUNIT# → ED 10:09 → MS2 13:34
PROVIDERS: ADMIT Specialist; ATTEND Internal Medicine
DX: J96.01 Acute respiratory failure with hypoxia (principal); J44.1 Chronic obstructive pulmonary disease with (acute) exacerbation; F03.918 Unspecified dementia, unspecified severity, with other behavioral disturbance; J44.9 Chronic obstructive pulmonary disease, unspecified; E10.9 Type 1 diabetes mellitus without complications; J10.1 Influenza due to other identified influenza virus with other respiratory manifestations; R09.02 Hypoxemia; Z20.822 Contact with and (suspected) exposure to COVID-19; E78.00 Pure hypercholesterolemia, unspecified; I10 Essential (primary) hypertension; E66.9 Obesity, unspecified; E11.65 Type 2 diabetes mellitus with hyperglycemia; R00.0 Tachycardia, unspecified; Z63.4 Disappearance and death of family member; Z66 Do not resuscitate; Z68.27 Body mass index [BMI] 27.0-27.9, adult; Z79.4 Long term (current) use of insulin; Z79.82 Long term (current) use of aspirin; Z79.899 Other long term (current) drug therapy; Z82.49 Family history of ischemic heart disease and other diseases of the circulatory system; Z83.3 Family history of diabetes mellitus; Z86.16 Personal history of COVID-19; Z91.81 History of falling
CPT/HCPCS: 36415; 71045; 80048; 80053; 81001; 83036; 83605; 83690; 84484; 85025; 87040; 87633; 93005; 99285; A9270; J1650; J1815; 81003; 87086

== ENCOUNTER 2023-03-20 21:31 | Outpatient (CLI) | payer MEDICARE, OTHER | END 2023-03-20 23:59 | disposition EMS.NT | LOC: EMS 21:31 | DX: R53.1 Weakness (principal); R55 Syncope and collapse ==

== ENCOUNTER 2023-07-20 11:37 | Outpatient (CLI) | payer MEDICARE, OTHER ==
--- NOTE | 2023-07-20 14:05 | XRAY Report ---
PROCEDURE: Knee 3V BL INDICATIONS: BILATERAL KNEE PAIN TECHNIQUE: 3 views of the knee(s) were acquired. COMPARISON: None. FINDINGS: Bones: No fractures or dislocations. No suspicious bony lesions. Tricompartmental joint space beatriz rowing with associated osteophytosis. Soft tissues: No knee joint effusion. No suspicious soft tissue calcifications or masses. IMPRESSION: Mild to moderate tricompartmental osteoarthritis. Kellgren-Randell scale of osteoarthritis: 2. Reviewed by: Santosh Jordan MD on 07/20/2023 2:03 PM PDT Approved by: Santosh Jordan MD on 07/20/2023 2:03 PM PDT Station ID: [id number]
== END 2023-07-20 11:38 | disposition home or self-care (01) ==
LOC: DI 11:37
PROVIDERS: ATTEND Internal Medicine
DX: M17.0 Bilateral primary osteoarthritis of knee (principal)